=== PATIENT | female | born 1965 | race Two or more races ===

== ENCOUNTER → 2017-02-15 | Outpatient (CLI) | payer BC ==
--- NOTE | ~2017-02-15 | MY26 ---
[facility] A Service of [facility] & [facility] RADIOLOGY TEXT RESULTS PATIENT: JONNATHAN ALARCON LOCATION: [facility] : 67 UNIT #: [id number] AGE: [address]: KAELYN FRANCISCO APRN SEX: F ORDER DR: [id number] [facility] [address] [place], [place] [address] [id number] O MR#: [id number] Acc #: [id number] NAME: JONNATHAN ALARCON : 1965 SEX: F STUDY DATE/TIME: 02/15/2017 7:54 UNIT: [facility] ROOM: STUDY DESCRIPTION: MY [facility] DIAGNOSTIC W/ CAD BILAT Attending Physician: Kaelyn Francisco Aprn Referring Physician: Kaelyn Francisco Aprn Ordering Physician: Kaleyn Francisco Aprn Primary Care Physician: Kaelyn Francisco Aprn MEDICAL IMAGING REPORT This report is preliminary unless electronic signature is present EXAM 1. Bilateral diagnostic mammogram with CAD 2. Right diagnostic breast ultrasound. HISTORY 51-year-old female with a palpable mass in the superior right breast. No personal history of malignancy. FINDINGS MAMMOGRAM: CC, MLO, and ML views of both breasts were obtained. Spot compression right CC and right MLO views were also acquired. The background breast parenchyma is dense. No suspicious mass or lesion is identified. Please note that dense breast tissue can obscure underlying breast pathology. The exam is compared to prior mammogram dated 05/07/2010. Given the palpable abnormality, right breast ultrasound was performed. RIGHT BREAST ULTRASOUND: Hassan-scale and color ultrasound of the right breast was performed. No evidence of a breast malignancy. There is a benign cyst at the 11 o'clock position, correlating with a palpable abnormality. This cyst measures 2.3 x 1.6 x 1.9 cm. This is located approximately 4 cm from the nipple. IMPRESSION 1. Benign right breast cyst correlates with the palpable abnormality. Benign mammogram and ultrasound. Patients over the age of 40 are entered into a reminder system with target due date for the next mammogram. A result letter will also be sent to the patient. [facility] A Service of [facility] & [facility] RADIOLOGY TEXT RESULTS PATIENT: JONNATHAN ALARCON LOCATION: [facility] #: [id number] : [birth year] UNIT #: [id number] AGE: [address]: KAELYN FRANCISCO APRN SEX: F ORDER DR: BIRADS: 2, benign findings. RECOMMENDATIONS Continue self-breast examination. Screening mammogram due in 1 year. Dictated by... Matthieu Melendez M.D. THIS IS AN ELECTRONICALLY VERIFIED REPORT Matthieu Melendez M.D. at 02/15/2017 2:40 PM RPC/mikar TD: 02/15/2017 14:03 JOB #: [id number] MEDICAL IMAGING REPORT Page 1 of 1 COPY
--- NOTE | ~2017-02-15 | US24 ---
[facility] A Service of [facility] RADIOLOGY TEXT RESULTS PATIENT: JONNATHAN ALARCON LOCATION: [facility] : 67 UNIT #: [id number] AGE: [address]: KAELYN FRANCISCO APRN SEX: F ORDER DR: [id number] [facility] [address] [place], [place] [address] [id number] O MR#: [id number] #: [id number] NAME: JONNATHAN ALARCON : 1965 SEX: F STUDY DATE/TIME: 02/15/2017 8:39 UNIT: [facility] ROOM: STUDY DESCRIPTION: US Breast Unilateral Attending Physician: Kaelyn Francisco Aprn Referring Physician: Kaelyn Francisco Aprn Ordering Physician: Kaelyn Francisco Aprn Primary Care Physician: Kaelyn Francisco Aprn MEDICAL IMAGING REPORT This report is preliminary unless electronic signature is present EXAM Right breast ultrasound. INDICATION Palpable mass in the right breast. FINDINGS Hassan-scale and color ultrasound of the right breast was performed in conjunction with the diagnostic mammogram. Please refer to the mammogram report for full details. There is a 2.3 cm benign cyst correlating with the palpable abnormality. No evidence of malignancy. IMPRESSION Benign right breast ultrasound. Patients over the age of 40 are entered into a reminder system with target due date for the next mammogram. A result letter will also be sent to the patient. BIRADS: 2. Benign examination. Dictated by... Matthieu Melendez M.D. THIS IS AN ELECTRONICALLY VERIFIED REPORT Matthieu Melendez M.D. at 02/15/2017 1:02 PM ALEXEI/abiodun TD: 02/15/2017 12:45 JOB #: [id number] [facility] A Service of [facility] RADIOLOGY TEXT RESULTS PATIENT: JONNATHAN ALARCON LOCATION: [facility] : 67 UNIT #: [id number] AGE: [address]: KAELYN FRANCISCO APRN SEX: F ORDER DR: MEDICAL IMAGING REPORT Page 1 of 1 COPY
== END | disposition home or self-care (01) ==
LOC: CMAM 07:38
DX: N63 Unspecified lump in breast (principal); N60.02 Solitary cyst of left breast; N60.01 Solitary cyst of right breast
CPT/HCPCS: 76641; G0204